=== PATIENT | female | born 1970 | race Caucasian/White ===

== ENCOUNTER 2024-09-01 06:37 | Day surgery (SDC) | payer OTHER ==
[2024-08-31 09:28] LABS: BASO % 1.3 % (0.1-1.2); EOS # 0.07 (0.04-0.54); EOS % 1.8 % (0.7-7.0); LYMPH # 1.35 (1.18-3.74); LYMPH % 33.9 % (19.3-53.1); MEAN PLATELET VOLUME 9.80 fl (9.4-12.4); MONO # 0.33 (0.24-0.82); MONO % 8.3 % (4.7-12.5); NEUT # 2.18 (1.56-6.13); NEUT % 54.7 % (34.0-71.1); RED CELL DISTRIBUTION WIDTH 12.9 % (11.6-14.4)
[2024-08-31 09:31] LABS: URINE APPEARANCE Clear; URINE BILIRRUBIN Negative (NEGATIVE); URINE BLOOD Negative; URINE COLOR Yellow; URINE GLUCOSE Negative (NEGATIVE); URINE KETONE Negative (NEGATIVE); URINE LEUKOCYTE Negative; URINE NITRATE Negative; URINE PROTEIN Negative (NEGATIVE); URINE UROBILINOGEN 0.2 E.U./dl
[2024-08-31 09:37] LABS: URINE BACTERIA 8.3 uL (0.0-1933); URINE WBC 3.4 uL (0.0-23.2)
[2024-08-31 09:43] LABS: URINE CAST 0.00 uL (0.0-1.40); URINE EPITHELIAL CELLS 0.9 uL (0.0-38.8); URINE RBC 0.7 uL (0.0-20.8)
[2024-08-31 09:54] LABS: INR 1.02
[2024-08-31 11:19] LABS: ALT/SGPT 21.0 U/L (12-78); AST/SGOT 15.0 U/L (15-37); BILIRUBIN TOTAL 0.48 mg/dL (0.3-1.2); BUN CREA RATIO 22.0 (7.0-25.0); CREATININE SERUM 0.76 mg/dL (0.55-1.02); GFR 79.61; GLOBULINA 3.6 G/DL (2.4-3.5); GLUCOSE FASTING 93.0 mg/dL (65-100); OSMOLALITY SERUM 288.0 MOSM/KG (275-295); TSH 1.9 uIU/mL (0.358-3.74)
[2024-09-01] MEDS ORDERED: ONDANSETRON HCL 2 MG/ML VIAL IV ONE (10:15)
[2024-09-01] MEDS ORDERED: MIDAZOLAM HCL 2 MG/2 ML VIAL IV ONE (10:15)
[2024-09-01] MEDS ORDERED: DIPHENHYDRAMINE HCL 50 MG/ML VIAL 1ML IV ONE (10:15)
[2024-09-01] MEDS ORDERED: fentaNYL CITRATE 50 MCG/ML AMPUL IV PUSH ONE (10:15)
== END 2024-09-01 10:35 | disposition home or self-care (01) ==
LOC: AMB-ENDOS 06:37
PROVIDERS: ATTEND Colon & Rectal Surgery
DX: C20 Malignant neoplasm of rectum (principal); K62.1 Rectal polyp; K57.30 Diverticulosis of large intestine without perforation or abscess without bleeding